=== PATIENT | male | born 2000 | race Caucasian/White ===

== ENCOUNTER 2025-02-21 17:09 | Emergency (ER) | payer SELFPAY ==
[2025-02-21 17:24] VITALS: BP 155/77; PULSE 79; RESP 20; TEMP 36.8; O2SAT 99
--- NOTE | 2025-02-21 17:36 | ED_ITS ---
HPI - URI/Sore Throat General Chief Complaint: Upper Respiratory Infection Stated Complaint: Swollen lymph nodes, sore throat, dizzy Time Seen by Provider: 02/21/25 17:36 Source: patient, RN notes reviewed and old records reviewed Mode of arrival: ambulatory Limitations: no limitations History of Present Illness HPI Narrative: 24 year old male who presents to [facility] with complaints of sore throat, chills, dizziness, headache,pressure to his ears, nasal drainage, nausea without emesis which started on Monday evening. Patient reports that he has not had any fevers MD elicited complaint: sore throat, rhinorrhea, nasal congestion and other (headache, dizziness, nausea without emesis, ear pressure) Onset (ago): day(s) (3 days) Consistency: progressively worsening Pain scale (0-10): 5 Able to tolerate fluids by mouth: Yes Exacerbating factors: swallowing Treatments prior to arrival: none Related Data Home Medications ?Medication ?Instructions ?Recorded ?Confirmed ?Last Taken ?Type dextroamphetamine-amphetamine PO DAILY 02/21/25 Unkno wn History lisinopril PO DAILY 02/21/25 Unknown H istory Allergies Allergy/AdvReac Type Severity Reaction Status Date / Time No Known Allergies Allergy Verified 02/21/25 17:36 Review of Systems Review of Systems: CONSTITUTIONAL: Reports malaise, no chills, sweats, or fever. EYES: Denies visual changes, redness, or discharge. ENT: Reports rhinorrhea, congestion, no sinus pain, pressure bilateral ear and +sore throat. CARDIOVASCULAR: Denies chest pain, palpitations, or edema. RESPIRATORY: Reports no cough.? Denies dyspnea. GASTROINTESTINAL: Denies abdominal pain,+ nausea, no vomiting, no diarrhea SKIN: Denies rash or itching. MUSCULOSKELETAL: Denies myalgia. NEUROLOGIC: Reports headache. All systems reviewed & are unremarkable except as noted in HPI and below [facility] Past Medical History Medical History (Updated 02/22/25 @ 21:01 by Emelyn Hernandes APRN) ADHD (attention deficit hyperactivity disorder) Hypertension Social History Social History (Updated 02/22/25 @ 21:01 by Emelyn Hernandes APRN) Smoking status: Never smoker Gender identity (if verbalized by the patient): Male Comments At time of signature, agree with nursing past medical, surgical, social and family history. There is no relevant family history pertinent to the presenting complaint Exam Narrative: GENERAL: Well-appearing, well-nourished, and in no acute distress. HEAD: Normocephalic EYES: PERRLA, conjunctivae clear ENT: Nares clear, turbinates edematous and erythematous, clear discharge. Mucous membranes moist. TM pearly peña with dull light reflex bilaterally; no tragal tenderness. Oropharynx erythematous without lesions. Tonsils red enlarged and without exudate, no drooling, no hoarseness, no trismus, uvula midline. NECK: Supple. lymphadenopathy CHEST: Clear to auscultation, breath sounds equal. No wheezing, rhonchi, rales, or stridor. No respiratory distress, speaks in full sentences.no cough noted SAO2 99% on room air HEART: Regular rate and rhythm. No murmur heard. SKIN: Warm, dry, no rash. NEURO: Alert and oriented x3. PSYCH: Normal mood and affect Course Course Emergency Course: Patient is aware of diagnosis, understands and agrees to treatment plan.? Anticipatory guidance given.? Patient agrees to follow-up as directed and is aware of reasons to seek care at the emergency department. Portions of this record may have been created with voice recognition software Level of Care: Express Care Visit Vital Signs Vital signs: Vital Signs Temperature 36.8 C 02/21/25 17:24 Pulse Rate 79 02/21/25 17:24 Respiratory Rate 20 02/21/25 17:24 Blood Pressure 155/77 H 02/21/25 17:24 Pulse Oximetry 99 02/21/25 17:24 Oxygen Delivery Room Air 02/21/25 17:24 Temperature 36.8 C 02/21/25 17:24 Pulse Rate 79 02/21/25 17:24 Respiratory Rate 20 02/21/25 17:24 Blood Pressure 155/77 H 02/21/25 17:24 Pulse Oximetry 99 02/21/25 17:24 Oxygen Delivery Room Air 02/21/25 17:24 Reviewed MDM - URI/Sore Throat MDM Narrative Medical decision making narrative: Differential diagnosis considered: Truong virus, strep pharyngitis, allergic rhinitis, upper respiratory tract infection, sinusitis, rhinosinusitis, nasopharyngitis. viral pharyngitis, otitis media, otitis externa, pneumonia, bronchitis, viral cough syndrome, viral syndrome, and influenza.? Exam findings show no acute concerns or changes; patient is non-toxic appearing and is in no distress.? Patient is appropriate for outpatient treatment and follow-up. Differential Diagnosis Differential diagnosis: Likely upper respiratory infection, sinusitis, viral infection, pharyngitis and other (strep pharyngitis) Lab Data Attestation: I reviewed the patient's lab results. Lab results narrative: strep screen positive Labs: Lab Results 02/21/25 Range/Units 17:21 POC Grp A Strep Screen Positive (Negative) reviewed Critical Care Time Critical Care Time Critical Care Time: No Discharge Plan Discharge Clinical Impression: Strep throat Patient Disposition: Home Condition: Stable Instructions: Antibiotic Form, Strep Throat (ED) Additional Instructions: You tested positive for Group A strep . Take the entire course of antibiotics. Throw away your current toothbrush and begin using a new toothbrush in 48 hours in order to prevent re-infection. Sanitize all reusable water bottles . Do not share items with others. Salt water gargles may alleviate some of the throat discomfort. You can take Tylenol or ibuprofen per the package instructions for pain/fever. Take Tylenol or ibuprofen for any fever pain for package instructions If your symptoms persist, change or worsen significantly before you can contact your personal physician then please, without delay, go to the emergency department for further evaluation. Follow-up with PCP in 7-10 days or sooner if needed Follow up with PCP soon in regards to your blood pressure which is elevated above threshold for referral. Blood pressure above 120/80 may indicate pre- hypertension. 155/77 Patient Language: Haitian Prescriptions: New amoxicillin 500 mg capsule 1,000 mg PO Q12H 7 Days Qty: 28 0RF No Action lisinopril PO DAILY dextroamphetamine-amphetamine [Adderall] PO DAILY Follow-up/Referrals: PHYSICIAN,[employer]IC[employer]ING TECHNICIAN [Primary Care Provider, Internal Medicine] Time of Disposition: 17:59 Quality Lucius Coma Scale Eyes: Open Verbal: Oriented and Alert Motor: Follows Commands Hume Coma Total Score: 15
[2025-02-21 17:45] LABS: EDSTREPNEGPOS1 Positive (Negative)
== END 2025-02-21 18:05 | disposition home or self-care (01) ==
PROVIDERS: Emergency Provider Registered Nurse
DX: J02.0 Streptococcal pharyngitis (principal); I10 Essential (primary) hypertension; F90.9 Attention-deficit hyperactivity disorder, unspecified type
CPT/HCPCS: 87880; 99203; G0463